=== PATIENT | female | born 1965 | race Caucasian/White ===

== ENCOUNTER 2016-10-03 19:50 | Emergency (ER) | payer OTHER ==
--- NOTE | 2016-10-03 20:09 | UCPHY ---
H & P Patient Type: Established HPI/ROS: HPI CHIEF COMPLAINT: Rash to inner thigh HISTORY OF PRESENT ILLNESS: This patient very pleasant 51-year-old female no significant medical history except for migraines, does not take any daily medication except for depression medications, presents to the urgent care with a rash to the inner right thigh. She was hiking today with her son they are visiting from [place]. She developed some pain on the inner right thigh. She took off her pants and noticed this erythematous lesion with white inner paleness. Unsure exactly what she got bit by. She thought initially it was her inner pants rubbing against her inner thigh. Denies fever. Denies spreading. Denies pruritus. Localized pain. Air is 3 cm x 4 cm. Right inner thigh. Patient concerned about Lyme. Past Medical History: Migraines Past Surgical History: no surgical history Social History: Denies daily use of drugs alcohol tobacco products Family History: Noncontributory ROS REVIEW OF SYSTEMS: A comprehensive 10 point review of systems is otherwise negative aside from elements mentioned in the history of present illness. Exam Constitutional appears well, nontoxic, afebrile, triage nursing summary reviewed, vital signs reviewed, awake/alert. Eyes normal conjunctivae and sclera, EOMI, PERRLA. HENT normal inspection, atraumatic, moist mucus membranes, no epistaxis, neck supple/ no meningismus, no raccoon eyes. Respiratory clear to auscultation bilaterally, normal breath sounds, no respiratory distress, no wheezing. Cardiovascular rate normal, regular rhythm, no murmur, no edema, distal pulses normal. Gastrointestinal soft, non-tender, no rebound, no guarding, normal bowel sounds, no distension, no pulsatile mass. Genitourinary no CVA tenderness. Musculoskeletal no midline vertebral tenderness, full range of motion, no calf swelling, no tenderness of extremities, no meningismus, good pulses, neurovascularly intact. Skin right inner thigh 3 x 4 cm a erythematous with central clearing, no particular purpura, pink, warm, & dry, no rash, skin atraumatic. Neurologic awake, alert and oriented x 3, AAOx3, moves all 4 extremities equally, motor intact, sensory intact, CN II-XII intact, normal cerebellar, normal vision, normal speech. Psychiatric normal mood/affect. Heme/Lymph/Immune no lymphadenopathy. Differential Diagnosis: Includes but is not limited to in a particular order insect bite, localized insect bite, localized infection, rash, allergic reaction , skin irritation from pants, doubt Lyme disease Medical Decision Making: Patient is concerned about Lyme disease request antibiotic to cover this. I will place her on doxy. This will cover strep, Staph, Lyme . She understands when she returns to [place] to follow up with her primary care doctor return to the urgent care or emergency room in [place] if she has worsening rash fever vomiting or questions or concerns. Source: Patient - Family History Significant Family History: No pertinent family hx Allergies/Adverse Reactions: codeine Allergy (Severe, Verified 10/03/16 20:17) headache amoxicillin Allergy (Intermediate, Verified 10/03/16 20:17) Rash Sulfa (Sulfonamide Antibiotics) Allergy (Intermediate, Verified 10/03/16 20:17) Rash Home Medications: Medication Instructions Recorded Doxycycline Hyclate 100 mg PO BID #17 tab 10/03/16 Escitalopram Oxalate 10/03/16 Naproxen 10/03/16 Naratriptan 10/03/16 Topiramate 10/03/16 Departure - Departure Disposition: Home, Routine, Self-Care Clinical Impression: Insect bite Qualifiers: Encounter type: initial encounter Qualified Code(s): W57.XXXA - Bitten or stung by nonvenomous insect and other nonvenomous arthropods, initial encounter Condition: Good Instructions: Insect Bite or Sting (ED) Additional Instructions: 1. Watch this area closely for worsening of condition. This includes spreading of the rash, fever, vomiting 2. Follow up with her primary care doctor in [place]. Referrals: NONE *PRIMARY CARE P,. [Primary Care Provider] - As per Instructions Prescriptions: Doxycycline Hyclate 100 mg PO BID #17 tab - PQRS PQRS Measurement: n/a
[2016-10-03] MEDS ORDERED: DOXYCYCLINE HYCLATE 100 MG CAP/TAB PO ONE (20:15)
[2016-10-03 20:19] VITALS: BP 118/83; PULSE 87; RESP 16; TEMP 97.7; O2SAT 94
== END 2016-10-03 20:25 | disposition home or self-care (01) ==
LOC: CED 19:50
DX: S70.361A Insect bite (nonvenomous), right thigh, initial encounter (principal); W57.XXXA Bitten or stung by nonvenomous insect and other nonvenomous arthropods, initial encounter; Z88.2 Allergy status to sulfonamides; Z88.5 Allergy status to narcotic agent
CPT/HCPCS: 99214-PO; G0463-PO